=== PATIENT | female | born 1950 | race Caucasian/White ===

== ENCOUNTER 2018-08-08 16:16 | Emergency (ER) | payer OTHER ==
--- NOTE | 2018-08-08 17:13 | EDPHY ---
H & P Time Seen by Provider: 08/08/18 16:26 HPI/ROS: CHIEF COMPLAINT: Foreign body under right thumb nail HISTORY OF PRESENT ILLNESS: This is a 68-year-old female who states that last night she was scraping some dry pasta off of pain when a small piece of pasta slid underneath the thumbnail on her right thumb. She was able to pull a small amount of the pasta out from underneath the nail. Today, she has noted more pain and foreign body sensation underneath the nail as well as pain and throbbing upper forearm. No fevers or chills. No swelling. No erythema or streaking. REVIEW OF SYSTEMS: A comprehensive 10 system review of systems was reviewed and is otherwise negative aside from elements mentioned in the history of present illness. PAST MEDICAL HISTORY: Patient has history of systemic mastocytosis. SOCIAL HISTORY: Retired nurse. GENERAL APPEARANCE: Pleasant, alert, no acute distress. She is quite hypertensive here and thinks this is due to anxiety, pain in the fact that she drink caffeine for the 1st time today and over of a year. FOCUSED EXAM OF right thumb: Faint white discoloration is present on the thumb approximately half a cm from the end of the nail. It is quite tender over this area. Two-point sensation is intact. No erythema.. Neurovascular exam: Good capillary refill, normal motor exam, normal neurologic exam. Smoking Status: Never smoked Constitutional: Initial Vital Signs Temperature (C) 36.8 C 08/08/18 16:23 Heart Rate 88 08/08/18 16:23 Respiratory Rate 16 08/08/18 16:23 Blood Pressure 179/102 H 08/08/18 16:23 O2 Sat (%) 95 08/08/18 16:23 O2 Delivery Mode Room Air Allergies/Adverse Reactions: meds that degranulate mast cells Allergy (Uncoded 08/08/18 16:30) Home Medications: Medication Instructions Recorded [facility] 08/08/18 ED Images - Extremities Fingertip Front/Back: 1 - small white discoloration/?foreign body 2 - area of nail removal Medical Decision Making ED Course/Re-evaluation: Procedure: Removal of the lateral aspect of the patient's nail. Indication: Foreign body under the nail. Patient received a digital block with bupivacaine without epinephrine. She received good anesthesia. A small sliver of the patient's thumbnail, right radial aspect, was removed. As the nail was elevated from the nail bed, a small piece of gelatinous pasta was expressed. The nail was removed and no further foreign body was noted. Patient tolerated the procedure well. Warm soak was provided. Thumb was then dressed with a tube gauze dressing and a small amount of antibiotic cream was applied to the nail bed. Please see the discharge instructions. Departure - Departure Disposition: Home, Routine, Self-Care Clinical Impression: Foreign body under nail Condition: Good Instructions: Soft Tissue Foreign Body (ED) Additional Instructions: Please soak the thumb and water 2 to 3 times a day for the next several days. Observed for worsening pain, redness or swelling or streaks going up the thumb, fevers, or other concerns. Please use a small amount of antibiotic cream such as bacitracin on the nail bed and wear a Band-Aid until the nail begins growing out. Referrals: NONE *PRIMARY CARE P,. [Primary Care Provider] - As per Instructions
[2018-08-08 17:33] VITALS: BP 140/97
== END 2018-08-08 17:30 | disposition home or self-care (01) ==
LOC: CED 16:16
PROC: 0HBQXZZ Excision of Finger Nail, External Approach (ICD-10-PCS; principal; 2018-08-08)
DX: S60.351A Superficial foreign body of right thumb, initial encounter (principal); Y93.G3 Activity, cooking and baking; Y92.9 Unspecified place or not applicable; Y93.9 Activity, unspecified